=== PATIENT | male | born 1935 | race Caucasian/White ===

== ENCOUNTER 2018-06-20 07:40 | Day surgery (SDC) | payer MEDICARE, BC ==
[~2018-06-20 07:40] MED LIST: Lactated Ringers 1,000 ML IV SCH; Sodium Chloride 0.9% 10 ML Syringe FLUSH PRN
--- NOTE | 2018-06-20 09:34 | OR ---
DATE OF OPERATION: 06/20/2018 SURGEON: Jonathan Enrique MD PROCEDURE PERFORMED: Colonoscopy. PREOPERATIVE DIAGNOSIS: Personal history of rectal cancer. POSTOPERATIVE DIAGNOSIS: Normal exam. INDICATIONS FOR PROCEDURE: This is an 82-year-old white male who has a history of an APR. He presents now for surveillance screening due to his history of rectal cancer. DESCRIPTION OF PROCEDURE: After an excellent IV sedation was administered, the appliance was removed from the patient's anterior abdominal wall. Digital rectal exam was performed and no marked abnormality was noted. The flexible colonoscope was inserted and advanced to the cecum without difficulty. The following findings were noted: Ascending colon, unremarkable. Transverse colon, unremarkable. Descending colon, unremarkable. Sigmoid, unremarkable. The patient tolerated the procedure well and was taken to Recovery in good condition. /[id number] /[id number]
== END 2018-06-20 10:26 | disposition home or self-care (01) ==
LOC: FB.SDS 07:40
PROVIDERS: ATTEND Surgery
DX: Z12.11 Encounter for screening for malignant neoplasm of colon (principal); I10 Essential (primary) hypertension; E11.9 Type 2 diabetes mellitus without complications; Z79.82 Long term (current) use of aspirin; Z79.84 Long term (current) use of oral hypoglycemic drugs; Z79.899 Other long term (current) drug therapy; Z85.048 Personal history of other malignant neoplasm of rectum, rectosigmoid junction, and anus; Z87.891 Personal history of nicotine dependence
CPT/HCPCS: 00811-QZ; 82962; J7120